=== PATIENT | female | born 1995 | race Caucasian/White ===

== ENCOUNTER 2016-07-22 01:50 | Emergency (ER) | payer BC ==
--- NOTE | 2016-07-22 02:42 | EDM.PDOC ---
ED HPI Behavioral Health - General Chief Complaint: Behavioral/Psych Stated Complaint: Depression, superficial cutting bilat arms Time Seen by Provider: 07/22/16 02:29 Source of Information: Reports: Patient Exam Limitations: Reports: No limitations - History of Present Illness INITIAL COMMENTS - FREE TEXT/NARRATIVE: Patient brought here via ems with reports of her being suicidal. she has attempted previously to commit suicide. She appears impulsive during history taking. Does see psychiatrist and a psychologist. Next appt. with both of them is on . She has had 4 friends/family/acquaintances over the last 2 weeks and is not dealing well. States she was recently started on Cymbalta which she has NOT started taking yet. Mother is here with her. She has bilateral forearm lacerations that are superficial. No organized plan, thought processes not well organized. Onset of Symptoms: Reports: today Symptom Onset Date: 07/22/16 Severity: moderate Context, Behavioral Health: Reports: other Associated Symptoms: Reports: depression - SAD Persons Scale (SPS) SPS Sex: Female SPS Age: Between 18-65 Years of Age SPS Depression: Yes SPS Previous Suicide Attempts: Yes SPS Alcohol Abuse/Drug Abuse: No SPS Rational Thinking Loss: No SPS Social Support Deficit: No SPS Organized Suicide Plan: No SPS No Spouse/Significant Other: Yes SPS Sickness: No SPS Sad Person Scale Score: 3 - Related Data Allergies Allergy/AdvReac Type Severity Reaction Status Date / Time No Known Drug Allergies Allergy Other Verified 11/25/15 00:52 Home Medications: Home Meds OXcarbazepine [Oxcarbazepine] 2,400 mg PO BEDTIME 05/21/14 [History] Gabapentin [Neurontin] 600 mg PO BEDTIME 11/25/15 [History] DULoxetine [Cymbalta] 20 mg PO DAILY 07/22/16 [History] Prazosin [Minpress] 2 mg PO DAILY 07/22/16 [History] Ziprasidone HCl 80 mg PO BEDTIME 07/22/16 [History] hydrALAZINE HCl [Hydralazine HCl] 200 mg PO BEDTIME 07/22/16 [History] Past Medical History Musculoskeletal History: Reports: Arthritis Other Musculoskeletal History: B. knees Neurological History: Reports: Seizure Psychiatric History: Reports: Anxiety, Bipolar, Depression - Infectious Disease History Infectious Disease History: Reports: Chicken pox Social & Family History - Family History Family Medical History: Noncontributory - Tobacco Use Smoking Status *Q: Current Every Day Smoker Years of Tobacco use: 4 Packs/Tins Daily: 1 - Alcohol Use Days Per Week of Alcohol Use: 5 Number of Drinks Per Day: 3 Total Drinks Per Week: 15 - Recreational Drug Use Recreational Drug Use: Yes Drug Use in Last 12 Months: Yes - Living Situation & Occupation Living situation: Reports: single ED ROS GENERAL - Review of Systems Review Of Systems: See Below Constitutional: Reports: no symptoms HEENT: Reports: No symptoms Respiratory: Reports: no symptoms Cardiovascular: Reports: No symptoms Endocrine: Reports: no symptoms GI/Abdominal: Reports: No symptoms : Reports: no symptoms Musculoskeletal: Reports: no symptoms Skin: Reports: wound (bilateral forearm lacerations, superficial) Neurological: Reports: no symptoms Psychiatric: Reports: Depression, Suicidal ideation Hematologic/Lymphatic: Reports: no symptoms Immunologic: Reports: no symptoms ED EXAM, BEHAVIORAL HEALTH - Physical Exam Exam: See Below Exam Limited By: No limitations General Appearance: alert, WD/WN, mild distress Eye Exam: bilateral eye: EOMI, PERRL Head: atraumatic, normocephalic Neck: normal inspection Respiratory/Chest: no respiratory distress, lungs clear Cardiovascular: normal peripheral pulses, regular rate, rhythm GI/Abdominal: normal bowel sounds, soft, non tender Neurological: alert, CN II-XII intact, normal cognition, oriented x 3 Psychiatric: alert, depressed mood, flight of ideas. No: suicidal plan, suicidal thoughts (states no plan or thoughts of suicide at this time) Skin Exam: Warm, Dry, Piercing(s) (lip), Signs of self injury (bilateral superficial forearm lacs) Departure - Departure Time of Disposition: 02:58 Disposition: Home, Self-Care 01 Condition: fair Clinical Impression: Depressive disorder, Self-harm, Suicidal thoughts Instructions: Suicidal Feelings: How to Help Yourself Forms: ED Department Discharge Additional Instructions: If you are to go home you need someone with you tonight to be sure that you will be safe. I recommend attempting to reschedule your doctors for an earlier appointment You need to start your Cymbalta, some of the stated side effects may be more suicidal feelings. If you experience this, you need to contact your medical provider Please call the ER if you have any questions, concerns, or start having suicidal thoughts and ideas. - Problem List & Annotations (1) Depressive disorder SNOMED Code(s): 48133059 Code(s): F32.9 - MAJOR DEPRESSIVE DISORDER, SINGLE EPISODE, UNSPECIFIED Status: Acute Priority: Low Current Visit: Yes (2) Self-harm SNOMED Code(s): 053707098 Code(s): [id number] - Status: Acute Priority: Medium Current Visit: Yes - Problem List Review Problem List Initiated/Reviewed/Updated: Yes - Assessment/Plan Assessment:: depression self harm Plan: If you are to go home you need someone with you tonight to be sure that you will be safe. I recommend attempting to reschedule your doctors for an earlier appointment You need to start your Cymbalta, some of the stated side effects may be more suicidal feelings. If you experience this, you need to contact your medical provider Please call the ER if you have any questions, concerns, or start having suicidal thoughts and ideas.
== END 2016-07-22 03:07 | disposition home or self-care (01) ==
LOC: VM.ED 01:50
CPT/HCPCS: 99284

== ENCOUNTER 2016-09-03 10:04 | Observation (INO) | payer BC ==
[2016-09-03] MEDS ORDERED: Sodium Chloride 0.9% 1,000 ML IV ONE (10:31)
[2016-09-03] MEDS ORDERED: Sodium Chloride 0.9% 10 ML Syringe FLUSH PRN (10:31)
--- NOTE | 2016-09-03 11:23 | EDM.PDOC ---
ED HPI GENERAL MEDICAL PROBLEM - General Chief Complaint: General Stated Complaint: "my equilibrium is off" Time Seen by Provider: 09/03/16 10:04 Source of Information: Reports: Patient, Family History Limitations: Reports: No limitations - History of Present Illness INITIAL COMMENTS - FREE TEXT/NARRATIVE: Patient is brought in via her mother with complaint of her "equilibrium being off". She did need to be brought in via wheelchair and an assist of 2 with a gait belt to transfer her to the stretcher. She admits to drinking some alcohol last night, 2 beers. Denies any illegal drugs. She stated that she took her evening medications this morning, but then spit them out. I previously saw her in early July for suicidal ideation and cutting behaviors. She has recently added cymbalta to her regimen. Mother is here as well helping with history. Family did go to her apartment and did tell me that all medications were accounted for. She does have an extensive history of mental instability with suicidal ideations, cutting, and suicidal attempts. She states that at 8 am she awoke and took care of her dog. It was not until about 930 that [address] felt this [address]. She denies that she took anything illicit within the last 24 hours. She does have some nausea, vomiting and double vision. She is awake and is able to give accurate answers to orientation questions. Onset: today Onset Date: 09/03/16 Onset Time: 09:30 Severity: severe Improves with: Reports: Rest Worsens with: Reports: Movement Associated Symptoms: Reports: nausea/vomiting, other (double vision) - Related Data Allergies Allergy/AdvReac Type Severity Reaction Status Date / Time No Known Drug Allergies Allergy Other Verified 09/03/16 10:27 Home Meds: Home Meds OXcarbazepine [Oxcarbazepine] 2,400 mg PO BEDTIME 05/21/14 [History] Gabapentin [Neurontin] 600 mg PO BEDTIME 11/25/15 [History] DULoxetine [Cymbalta] 20 mg PO DAILY 07/22/16 [History] Prazosin [Minpress] 2 mg PO DAILY 07/22/16 [History] Ziprasidone HCl 160 mg PO BEDTIME 07/22/16 [History] hydrALAZINE HCl [Hydralazine HCl] 250 mg PO BEDTIME 07/22/16 [History] Past Medical History Musculoskeletal History: Reports: Arthritis Other Musculoskeletal History: B. knees Neurological History: Reports: Seizure Psychiatric History: Reports: Anxiety, Bipolar, Depression - Infectious Disease History Infectious Disease History: Reports: Chicken pox Social & Family History - Family History Family Medical History: Noncontributory - Tobacco Use Smoking Status *Q: Current Every Day Smoker Years of Tobacco use: 4 Packs/Tins Daily: 1 - Alcohol Use Days Per Week of Alcohol Use: 5 Number of Drinks Per Day: 3 Total Drinks Per Week: 15 - Recreational Drug Use Recreational Drug Use: Yes Drug Use in Last 12 Months: Yes - Living Situation & Occupation Living situation: Reports: single ED ROS GENERAL - Review of Systems Review Of Systems: See Below Constitutional: Reports: weakness, other HEENT: Reports: Other (double vision) Respiratory: Reports: No Symptoms Cardiovascular: Reports: No symptoms Endocrine: Reports: no symptoms GI/Abdominal: Reports: Nausea : Reports: no symptoms Musculoskeletal: Reports: no symptoms Skin: Reports: no symptoms Neurological: Reports: Weakness Psychiatric: Reports: Anxiety, Depression Hematologic/Lymphatic: Reports: no symptoms Immunologic: Reports: no symptoms ED EXAM, GENERAL - Physical Exam Exam: See Below Exam Limited By: Altered mental status General Appearance: alert, WD/WN, no apparent distress Eye Exam: bilateral eye: EOMI, PERRL Ears: normal TMs Nose: normal inspection Throat/Mouth: Normal inspection, Normal oropharynx Head: atraumatic, normocephalic Neck: normal inspection, supple, non-tender, full range of motion Respiratory/Chest: no respiratory distress, lungs clear, normal breath sounds Cardiovascular: normal peripheral pulses, regular rate, rhythm GI/Abdominal: normal bowel sounds, soft, non tender, no organomegaly Back Exam: normal inspection Extremities: normal inspection, normal range of motion, non-tender, no pedal edema, normal capillary refill, other (weakness, inability to stand or transfer) Neurological: alert, oriented, CN II-XII intact, slow to respond, abnormal gait , sensory/motor deficit Psychiatric: normal affect, normal mood Skin Exam: Warm, Dry, Intact Lymphatic: no adenopathy Course - Vital Signs Last Recorded V/S: Last Vital Signs Temp 37.1 C 09/03/16 10:04 Pulse 109 H 09/03/16 10:04 Resp 16 09/03/16 10:04 BP 128/76 09/03/16 10:04 Pulse Ox 95 09/03/16 10:04 - Orders/Labs/Meds Orders: Active Orders 24 hr Category Date Time Status EKG 12 Lead [EKG Documentation Completion] [RC] ROUTINE Care 09/03/16 10:27 Active Chest 1V Frontal [CR] Stat Exams 09/03/16 10:27 Taken Head wo Cont [CT] Stat Exams 09/03/16 10:29 Taken GABAPENTIN [REF] Stat Lab 09/03/16 10:39 Received OXCARBAZEPINE METABOLITE [REF] Stat Lab 09/03/16 10:39 Received TRICYCLIC ANTIDEPRESSANTS CINDY Routine Lab 09/03/16 11:44 Received Sodium Chloride 0.9% [Saline Flush] Med 09/03/16 10:31 Active 10 ml FLUSH ASDIRECTED PRN Saline Lock Insert [OM.PC] Routine Oth 09/03/16 10:31 Ordered Medication Orders Sodium Chloride (Saline Flush) 10 ml FLUSH ASDIRECTED PRN PRN Reason: Keep Vein Open Labs: Laboratory Tests 09/03/16 09/03/16 09/03/16 Range/Units 10:39 10:39 11:44 WBC 8.0 (4.0-10.0) x10^3/uL RBC 4.82 (4.00-5.50) x10^6/uL Hgb 14.1 (12.0-16.0) g/dL Hct 42.0 (33.0-47.0) % MCV 87.1 (78.0-93.0) fL MCH 29.3 (26.0-32.0) pg MCHC 33.6 (32.0-36.0) g/dL RDW Coeff of Alessandra 13.9 (10.0-15.0) % Plt Count 356 (130-400) x10^3/uL Neut % (Auto) 60.2 (50.0-80.0) % Lymph % (Auto) 28.6 (25.0-50.0) % Isabella % (Auto) 7.9 (2.0-11.0) % Eos % (Auto) 2.9 (0.0-4.0) % Baso % (Auto) 0.4 (0.2-1.2) % Sodium 143 (136-145) mmol/L Potassium 4.3 (3.5-5.1) mmol/L Chloride 106 (98-107) mmol/L Carbon Dioxide 28 (21-32) mmol/L BUN 9 (7-18) mg/dL Creatinine 0.9 (0.55-1.02) mg/dL Est Cr Clr Drug Dosing TNP Estimated GFR (MDRD) > 60 Glucose 120 H (74-106) mg/dL Calcium 8.5 (8.5-10.1) mg/dL Creatine Kinase 50 (26-192) U/L Creatine Kinase Index TNP CK-MB (CK-2) TNP C-Reactive Protein 0.5 (<=0.9) mg/dL Urine Color (YELLOW) Urine Appearance (CLEAR) Urine pH (5.0-8.0) Ur Specific Stafford Urine Protein (NEGATIVE) mg/dL Urine Glucose (UA) (NEGATIVE) mg/dL Urine Ketones (NEGATIVE) mg/dL Urine Occult Blood (NEGATIVE) Urine Nitrite (NEGATIVE) Urine Bilirubin (NEGATIVE) Urine Urobilinogen (0.2) EU/dL Ur Leukocyte Esterase (NEGATIVE) Urine RBC (NOT SEEN) /HPF Urine WBC (NOT SEEN) /HPF Ur Squamous Epith Cells (NEGATIVE) /HPF Urine Bacteria (NEGATIVE) /HPF Urine Mucus (NEGATIVE) /LPF Urine HCG, Qual (NEGATIVE) Urine Opiates Screen Cancelled Ur Buprenorphine Scrn Cancelled Ur Oxycodone Screen Cancelled Urine Methadone Screen Cancelled Acetaminophen 0 L (10-30) ug/ml Ur Barbiturates Screen (NEGATIVE) Ur Barbituates Screen Cancelled Ur Tricyclics Screen Cancelled Ur Amphetamine Screen (NEGATIVE) Ur Amphetamines Screen Cancelled U Methamphetamines Scrn Cancelled Urine MDMA Screen Cancelled U Benzodiazepines Scrn Cancelled Urine Cocaine Screen Cancelled U Cocaine Metab Screen (NEGATIVE) U Marijuana (THC) Screen Cancelled Ethyl Alcohol < 3 (0-3) mg/dL 09/03/16 09/03/16 09/03/16 Range/Units 11:44 11:44 11:44 WBC (4.0-10.0) x10^3/uL RBC (4.00-5.50) x10^6/uL Hgb (12.0-16.0) g/dL Hct (33.0-47.0) % MCV (78.0-93.0) fL MCH (26.0-32.0) pg MCHC (32.0-36.0) g/dL RDW Coeff of Alessandra (10.0-15.0) % Plt Count (130-400) x10^3/uL Neut % (Auto) (50.0-80.0) % Lymph % (Auto) (25.0-50.0) % Isabella % (Auto) (2.0-11.0) % Eos % (Auto) (0.0-4.0) % Baso % (Auto) (0.2-1.2) % Sodium (136-145) mmol/L Potassium (3.5-5.1) mmol/L Chloride (98-107) mmol/L Carbon Dioxide (21-32) mmol/L BUN (7-18) mg/dL Creatinine (0.55-1.02) mg/dL Est Cr Clr Drug Dosing Estimated GFR (MDRD) Glucose (74-106) mg/dL Calcium (8.5-10.1) mg/dL Creatine Kinase (26-192) U/L Creatine Kinase Index CK-MB (CK-2) C-Reactive Protein (<=0.9) mg/dL Urine Color Yellow (YELLOW) Urine Appearance Slightly cloudy H (CLEAR) Urine pH 7.0 (5.0-8.0) Ur Specific Stafford 1.025 Urine Protein 30 H (NEGATIVE) mg/dL Urine Glucose (UA) Negative (NEGATIVE) mg/dL Urine Ketones Negative (NEGATIVE) mg/dL Urine Occult Blood Large H (NEGATIVE) Urine Nitrite Negative (NEGATIVE) Urine Bilirubin Negative (NEGATIVE) Urine Urobilinogen 1.0 (0.2) EU/dL Ur Leukocyte Esterase Negative (NEGATIVE) Urine RBC 10-20 H (NOT SEEN) /HPF Urine WBC 0-5 (NOT SEEN) /HPF Ur Squamous Epith Cells Moderate H (NEGATIVE) /HPF Urine Bacteria Moderate H (NEGATIVE) /HPF Urine Mucus Few H (NEGATIVE) /LPF Urine HCG, Qual Negative (NEGATIVE) Urine Opiates Screen Negative Ur Buprenorphine Scrn Negative Ur Oxycodone Screen Negative Urine Methadone Screen Negative Acetaminophen (10-30) ug/ml Ur Barbiturates Screen Negative (NEGATIVE) Ur Barbituates Screen Ur Tricyclics Screen Positive H Ur Amphetamine Screen Negative (NEGATIVE) Ur Amphetamines Screen U Methamphetamines Scrn Negative Urine MDMA Screen Negative U Benzodiazepines Scrn Negative Urine Cocaine Screen U Cocaine Metab Screen Negative (NEGATIVE) U Marijuana (THC) Screen Negative Ethyl Alcohol (0-3) mg/dL Meds: Medications Generic Name Dose Route Start Last Admin Trade Name Freq PRN Reason Stop Dose Admin Sodium Chloride 10 ml 09/03/16 10:31 Saline Flush FLUSH ASDIRECTED PRN Keep Vein Open Discontinued Medications Generic Name Dose Route Start Last Admin Trade Name Freq PRN Reason Stop Dose Admin Sodium Chloride 1,000 mls @ 999 mls/hr 09/03/16 10:31 09/03/16 11:44 Normal Saline IV 09/03/16 11:31 999 mls/hr .BOLUS ONE Administration - Radiology Interpretation Free Text/Narrative:: Chest x-ray and Head CT ordered: both negative for acute pathology - Re-Assessments/Exams Free Text/Narrative Re-Assessment/Exam: 09/03/16 13:21 Consultations with both Go and Neurology from [facility]. I am going to admit the patient for observation. Most of her diagnostic evaluations have presented as negative findings. Her urine is positive for tricyclic antidepressants, though she does not have these ordered, and denies taking them. Her double vision did resolve when testing one eye at a time. Dr. Bolanos from [facility] felt that this was likely a psychogenic problem if the diplopia resolved when testing one eye at a time; which it did. Relayed concerns to the patient and her father regarding the positive tricyclic urine test when she is not supposed to be taking them. She and her family deny that she has taken. Departure - Departure Time of Disposition: 13:28 Disposition: Refer to Observation Condition: good Clinical Impression: Tricyclic overdose, Near syncope Forms: ED Department Discharge ED Communication - Discussed Case With (1) Discussed Case With (1): Other (Go was called to discuss patient case. I talked with Dr. Bennett. He recommended a urine test, as well as consultation with neurology. I did also contact Dr. Bolanos, Neurologist at [facility] in [place] regarding her case. recommended checking for diplopia in 1 eye at a time. If still present it was likely monocular diplopia, if it stopped , then likely psychogenic in nature. Exam showed to not extend to one eye. Double vision stopped with the one eye test bilaterally, then resumed with both eyes opened.) - My Orders Last 24 Hours: My Active Orders 09/03/16 10:27 EKG 12 Lead [EKG Documentation Completion] [RC] ROUTINE Chest 1V Frontal [CR] Stat 09/03/16 10:29 Head wo Cont [CT] Stat 09/03/16 10:31 Sodium Chloride 0.9% [Saline Flush] 10 ml FLUSH ASDIRECTED PRN Saline Lock Insert [OM.PC] Routine 09/03/16 10:39 GABAPENTIN [REF] Stat OXCARBAZEPINE METABOLITE [REF] Stat 09/03/16 11:44 TRICYCLIC ANTIDEPRESSANTS CINDY Routine - Assessment/Plan Last 24 Hours: My Active Orders 09/03/16 10:27 EKG 12 Lead [EKG Documentation Completion] [RC] ROUTINE Chest 1V Frontal [CR] Stat 09/03/16 10:29 Head wo Cont [CT] Stat 09/03/16 10:31 Sodium Chloride 0.9% [Saline Flush] 10 ml FLUSH ASDIRECTED PRN Saline Lock Insert [OM.PC] Routine 09/03/16 10:39 GABAPENTIN [REF] Stat OXCARBAZEPINE METABOLITE [REF] Stat 09/03/16 11:44 TRICYCLIC ANTIDEPRESSANTS CINDY Routine
[2016-09-03 11:32] LABS: CHLORIDE,CL 106 mmol/L (98-107); SODIUM,NA 143 mmol/L (136-145)
[2016-09-03 11:47] LABS: ACETAMINOPHEN 0 ug/ml (10-30)
[2016-09-03] MEDS ORDERED: Prochlorperazine 10 MG/2 ML SDV IV ONE (13:04)
[2016-09-03] MEDS: Sodium Chloride 0.9% 1,000 ML IV SCH ×2 (13:17→19:05)
[2016-09-03] MEDS ORDERED: Acetaminophen 325 MG Tab PO PRN (15:27)
[2016-09-03] MEDS ORDERED: Enoxaparin 40 MG/0.4 ML Syringe SUBCUT ONE (15:32)
[2016-09-03] MEDS ORDERED: Prochlorperazine 5 MG Tab PO PRN (15:32)
[2016-09-03] MEDS ORDERED: hydrALAZINE 25 MG Tab PO SCH (20:00)
[2016-09-03] MEDS ORDERED: PRAZOSIN 1 MG PO SCH (20:00)
[2016-09-03] MEDS ORDERED: OXcarbazepine 300 MG Tab PO SCH (20:00)
[2016-09-03] MEDS ORDERED: ZIPRASIDONE PO SCH (20:00)
[2016-09-03] MEDS ORDERED: Gabapentin 300 MG Cap PO SCH (20:00)
[2016-09-03] MEDS ORDERED: ClonazePAM 0.5 MG Tab PO ONE ×2 (22:16→22:45)
[2016-09-03] MEDS ORDERED: ClonazePAM 0.5 MG Tab PO PRN (22:31)
[2016-09-03 23:20] VITALS: BP 119/39
--- NOTE | 2016-09-03 23:27 | PCM.DCSUM1 ---
Discharge Summary - Hospital Course Free Text/Narrative:: Patient is requesting to be discharged. Significant other in the room and will stay with the patient overnight. States that being here is causing anxiety. Brief History: Patient presented to the emergency department with complaints of double vision, nausea, "equilibrium off". Needed assistance of 2 people with gait belt to get from wheelchair to stretcher. No fever, no other complaints. History of suicidal ideation, suicide attempt, cutting and other self harm behavior. - Discharge Data Discharge Date: 09/03/16 Discharge Disposition: Home, Self-Care 01 Condition: Good - Patient Instructions Diet: Usual Diet as Tolerated Activity: As Tolerated Showering/Bathing: May Shower Notify Provider of: Fever, Nausea and/or Vomiting Other/Special Instructions: Follow up with your psychiatrist to have medications reviewed for possible polypharmacy concerns. - Discharge Plan Home Medications: Home Meds OXcarbazepine [Oxcarbazepine] 2,400 mg PO BEDTIME 05/21/14 [History] Gabapentin [Neurontin] 600 mg PO BEDTIME 11/25/15 [History] DULoxetine [Cymbalta] 20 mg PO DAILY 07/22/16 [History] Prazosin [Minpress] 1 mg PO DAILY 07/22/16 [History] Ziprasidone HCl 160 mg PO BEDTIME 07/22/16 [History] hydrALAZINE HCl [Hydralazine HCl] 250 mg PO BEDTIME 07/22/16 [History] Forms: ED Department Discharge Referrals: Linn Coy, DAYTIME CAREGIVER [Primary Care Provider] - - Discharge Summary/Plan Comment DC Time >30 min.: Yes - General Info Date of Service: 09/03/16 Functional Status: Reports: pain controlled, tolerating diet, ambulating, other (increased anxiety) - Review of Systems General: Reports: No Symptoms HEENT: Reports: no symptoms Pulmonary: Reports: no symptoms Cardiovascular: Reports: No Symptoms Gastrointestinal: Reports: No symptoms Genitourinary: Reports: no symptoms Musculoskeletal: Reports: no symptoms Skin: Reports: no symptoms Neurological: Reports: No Symptoms Psychiatric: Reports: anxiety, agitation. Denies: suicidal ideation - Patient Data Vitals - Most Recent: Last Vital Signs Temp 36.6 C 09/03/16 22:00 Pulse 124 H 09/03/16 22:00 Resp 28 H 09/03/16 22:00 BP 119/39 L 09/03/16 22:00 Pulse Ox 98 09/03/16 22:00 Weight - Most Recent: 95.889 kg I&O - Last 24 hours: Intake & Output 09/03/16 09/03/16 09/04/16 14:59 22:59 06:59 Intake Total 848 748 Output Total 500 Balance 348 748 Med Orders - Current: Current Medications Acetaminophen (Tylenol) 650 mg PO Q4H PRN PRN Reason: analgesia/fever Clonazepam (Klonopin) 0.5 mg PO ONETIME PRN PRN Reason: agitation Stop: 09/04/16 02:00 Duloxetine HCl (Cymbalta) 20 mg PO DAILY HINA Gabapentin (Neurontin) 600 mg PO BEDTIME HINA Last Admin: 09/03/16 20:26 Dose: 600 mg Hydralazine HCl (Apresoline) 250 mg PO BEDTIME HINA Last Admin: 09/03/16 20:25 Dose: 250 mg Sodium Chloride (Normal Saline) 1,000 mls @ 150 mls/hr IV ASDIRECTED HINA Last Admin: 09/03/16 19:05 Dose: 150 mls/hr Nf (Ziprasidone (80mgx2)Ptom) 160 mg PO BEDTIME HINA Last Admin: 09/03/16 20:28 Dose: 160 mg Nf(Prazosin 1 Mg) (Ptom) 1 mg PO BEDTIME HINA Last Admin: 09/03/16 20:26 Dose: 1 mg Oxcarbazepine (Trileptal) 2,400 mg PO BEDTIME HINA Last Admin: 09/03/16 20:27 Dose: 2,400 mg Prochlorperazine Maleate (Compazine) 2.5 mg PO Q8H PRN PRN Reason: Nausea Sodium Chloride (Saline Flush) 10 ml FLUSH ASDIRECTED PRN PRN Reason: Keep Vein Open Discontinued Medications Clonazepam (Klonopin) 0.5 mg PO ONETIME ONE Stop: 09/03/16 22:46 Last Admin: 09/03/16 22:43 Dose: Not Given Enoxaparin Sodium (Lovenox) 40 mg SUBCUT ONETIME ONE Stop: 09/03/16 15:33 Last Admin: 09/03/16 16:01 Dose: 40 mg Sodium Chloride (Normal Saline) 1,000 mls @ 999 mls/hr IV .BOLUS ONE Stop: 09/03/16 11:31 Last Admin: 09/03/16 11:44 Dose: 999 mls/hr Non-Formulary Medication (Prazosin [Minpress]) 2 mg PO DAILY HINA Prochlorperazine Edisylate (Compazine) 5 mg IV ONETIME ONE Stop: 09/03/16 13:05 Last Admin: 09/03/16 13:18 Dose: 5 mg - Exam General: Reports: alert, oriented HEENT: Reports: Pupils equal, Pupils reactive, EOMI, Mucous membr. moist/pink Neck: Reports: supple Lungs: Reports: Clear to auscultation Cardiovascular: Reports: Regular Rate, Regular Rhythm Abdomen: Reports: bowel sounds present Extremities: Reports: no edema Skin: Reports: warm, dry, intact Neurological: Reports: no new focal deficit Psy/Mental Status: Reports: alert, normal affect, anxious, agitated *Q Meaningful Use (DIS) - VTE *Q VTE Criteria *Q: - Stroke *Q Stroke Criteria *Q: - AMI *Q AMI Criteria *Q:
[2016-09-04] MEDS ORDERED: PRAZOSIN 2 MG PO SCH (08:00)
[2016-09-04] MEDS ORDERED: DULoxetine 20 MG Cap PO SCH (08:00)
== END 2016-09-03 23:46 | disposition home or self-care (01) ==
LOC: VM.ED 10:04 → VM.MS 13:04
PROVIDERS: ADMIT Nurse Practitioner Family; ATTEND Nurse Practitioner Family
DX: T43.011A Poisoning by tricyclic antidepressants, accidental (unintentional), initial encounter (principal); R55 Syncope and collapse; F41.9 Anxiety disorder, unspecified; F32.9 Major depressive disorder, single episode, unspecified; F17.210 Nicotine dependence, cigarettes, uncomplicated; Z79.899 Other long term (current) drug therapy
CPT/HCPCS: 70450; 71010; 80048; 80171; 80183; 80299; 80305; 81001; 81025; 82550; 85025; 86140; 93005; 96361; 96372; 96374; 99285; A9270; G0378; G0480; J0780; J1650; J7030

== ENCOUNTER 2016-11-09 22:34 | Emergency (ER) | payer OTHER, BC ==
[2016-11-09] MEDS ORDERED: Take Home: Acetaminophen/oxyCODONE 325-5 MG, 5 Tab Pack PO ONE (23:35)
--- NOTE | 2016-11-09 23:39 | EDM.PDOC ---
ED HPI GENERAL MEDICAL PROBLEM - General Chief Complaint: Lower Extremity Injury/Pain Stated Complaint: FOOT/ANKLE INJURY Time Seen by Provider: 11/09/16 22:35 Source of Information: Reports: Patient History Limitations: Reports: No Limitations - History of Present Illness INITIAL COMMENTS - FREE TEXT/NARRATIVE: Patient was jumping on a trampoline at work with the children she was watching. She did roll her ankle on the tramp. She doesn't have any other complaints. She did not hit her head or lose consciousness. Comes in via wheelchair. Foot was wrapped with ice. Onset: Today, Sudden Onset Date: 11/10/16 Onset Time: 19:00 Location: Reports: Lower Extremity, Left Quality: Reports: Ache Improves with: Reports: Cold Therapy Worsens with: Reports: Movement Associated Symptoms: Reports: No Other Symptoms - Related Data Allergies Allergy/AdvReac Type Severity Reaction Status Date / Time No Known Drug Allergies Allergy Other Verified 09/03/16 10:27 Home Meds: Home Meds OXcarbazepine [Oxcarbazepine] 2,400 mg PO BEDTIME 05/21/14 [History] Gabapentin [Neurontin] 600 mg PO BEDTIME 11/25/15 [History] DULoxetine [Cymbalta] 20 mg PO DAILY 07/22/16 [History] Prazosin [Minpress] 1 mg PO DAILY 07/22/16 [History] Ziprasidone HCl 160 mg PO BEDTIME 07/22/16 [History] hydrALAZINE HCl [Hydralazine HCl] 250 mg PO BEDTIME 07/22/16 [History] OXcarbazepine [Trileptal] 2,400 mg PO BEDTIME tablet 09/03/16 [Rx] Prazosin [Minpress] 1 mg PO BEDTIME 09/03/16 [Rx] Past Medical History Musculoskeletal History: Reports: Arthritis Other Musculoskeletal History: B. knees Neurological History: Reports: Seizure Psychiatric History: Reports: Anxiety, Bipolar, Depression - Infectious Disease History Infectious Disease History: Reports: Chicken Pox Social & Family History - Family History Family Medical History: Noncontributory - Tobacco Use Smoking Status *Q: Current Every Day Smoker Years of Tobacco use: 8 Packs/Tins Daily: 0.5 - Caffeine Use Caffeine Use: Reports: Coffee, Energy Drinks, Soda - Alcohol Use Days Per Week of Alcohol Use: 3 Number of Drinks Per Day: 3 Total Drinks Per Week: 9 - Recreational Drug Use Recreational Drug Use: No Drug Use in Last 12 Months: Yes - Living Situation & Occupation Living situation: Reports: Single Review of Systems - Review of Systems Review Of Systems: See Below Constitutional: Reports: No Symptoms Eyes: Reports: No Symptoms Ears: Reports: No Symptoms Nose: Reports: No Symptoms Mouth/Throat: Reports: No Symptoms Respiratory: Reports: No Symptoms Cardiovascular: Reports: No Symptoms GI/Abdominal: Reports: No Symptoms Genitourinary: Reports: No Symptoms Musculoskeletal: Reports: Leg Pain, Foot Pain Skin: Reports: No Symptoms Neurological: Reports: No Symptoms Psychiatric: Reports: No Symptoms ED EXAM, GENERAL - Physical Exam Exam: See Below Exam Limited By: No Limitations General Appearance: Alert, WD/WN, Mild Distress Head: Atraumatic, Normocephalic Extremities: Pedal Edema Neurological: Alert, Oriented, CN II-XII Intact, Normal Cognition, Normal Gait, Normal Reflexes, No Motor/Sensory Deficits Psychiatric: Normal Affect, Normal Mood Skin Exam: Warm, Dry, Intact, Normal Color, No Rash Course - Orders/Labs/Meds Orders: Active Orders 24 hr Category Date Time Status Ankle Min 3V Lt [CR] Stat Exams 11/09/16 22:42 Taken - Radiology Interpretation Free Text/Narrative:: negative x-ray for acute fracture Departure - Departure Time of Disposition: 23:31 Disposition: Home, Self-Care 01 Condition: Good Clinical Impression: Left ankle sprain - Discharge Information Instructions: Ankle Sprain, [id number] Additional Instructions: Elevate your ankle as much as possible. Having it lowered will just increase the swelling. You should also ice your ankle for 30 minutes at a time, then take the ice off for at least the same amount of time. Continue to ice, elevate and compress your ankle until the pain and swelling have resolved. If you have continued difficulties past 7-10 days, please follow up with your primary provider. Please call us with any questions or concerns. - Problem List & Annotations (1) Left ankle sprain SNOMED Code(s): 91513515 Code(s): S93.402A - SPRAIN OF UNSPECIFIED LIGAMENT OF LEFT ANKLE, INIT ENCNTR Status: Acute Priority: Low Qualifiers: Encounter type: initial encounter Involved ligament of ankle: unspecified ligament Qualified Code(s): S93.402A - Sprain of unspecified ligament of left ankle, initial encounter - Problem List Review Problem List Initiated/Reviewed/Updated: Yes - My Orders Last 24 Hours: My Active Orders 11/09/16 22:42 Ankle Min 3V Lt [CR] Stat - Assessment/Plan Last 24 Hours: My Active Orders 11/09/16 22:42 Ankle Min 3V Lt [CR] Stat Assessment:: left ankle sprain Plan: Elevate your ankle as much as possible. Having it lowered will just increase the swelling. You should also ice your ankle for 30 minutes at a time, then take the ice off for at least the same amount of time. Continue to ice, elevate and compress your ankle until the pain and swelling have resolved. If you have continued difficulties past 7-10 days, please follow up with your primary provider. Please call us with any questions or concerns.
[2016-11-10 01:14] VITALS: BP 135/82
== END 2016-11-09 23:48 | disposition home or self-care (01) ==
LOC: VM.ED 22:34 → SUPCPDRO 22:34 → VM.ED 23:48
DX: S93.402A Sprain of unspecified ligament of left ankle, initial encounter (principal); F31.9 Bipolar disorder, unspecified; F17.210 Nicotine dependence, cigarettes, uncomplicated; Z79.899 Other long term (current) drug therapy; X58.XXXA Exposure to other specified factors, initial encounter; Y93.39 Activity, other involving climbing, rappelling and jumping off; Y93.44 Activity, trampolining
CPT/HCPCS: 73610; 99283; A9270

== ENCOUNTER 2017-03-08 17:05 | Observation (INO) | payer BC ==
[2017-03-08 17:57] LABS: CHLORIDE,CL 103 mmol/L (98-107); SODIUM,NA 140 mmol/L (136-145)
--- NOTE | 2017-03-08 18:20 | EDM.PDOC ---
ED HPI GENERAL MEDICAL PROBLEM - General Chief Complaint: Drug or Alcohol Abuse Stated Complaint: EXCESS PILL INTAKE Time Seen by Provider: 03/08/17 17:05 Source of Information: Reports: Family History Limitations: Reports: Altered Mental Status, Other (Patient did come to the emergency room with drug overdose and was brought in by her parents.) - History of Present Illness INITIAL COMMENTS - FREE TEXT/NARRATIVE: Patient was at home and did breakup with her significant other today according to her mother. Her mother was at home cooking and she did get a phone call from the patient who said that she took an overdose of pills and her mom went to her house and picked her up and brought her to the emergency room. Mom did find out how many pills the patient did take, these included Caphydroxyz Ayde 50mg-she did take 14 of these, Gabapentin 600mg - she did take seven of these, CapPrazosin HCL 1mg - She did take seven of these, Capziprasidone 40mg - she did take seven of these, Capduloxetine 20mg - She did take seven of these, Capziprasidone 80 mg - She did take seven of these, Oxcarbazepin 600mg - She did take twenty eight of these. Patient was not alert or oriented when brought into the emergency room, she did react to painful stimulation as a nurses to try to start her IV. She also did interact with one of the nurses and told her that she had 2 beers to drink also today. 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 (see below) (Mother did try to outpatient vomit, she did vomit twice before coming to the emergency room mom was unsure how much of the medication came off or if any.) - Related Data Allergies Allergy/AdvReac Type Severity Reaction Status Date / Time No Known Drug Allergies Allergy Other Verified 11/10/16 00:52 Home Meds: Home Meds OXcarbazepine [Oxcarbazepine] 2,400 mg PO BEDTIME 05/21/14 [History] Gabapentin [Neurontin] 600 mg PO BEDTIME 11/25/15 [History] DULoxetine [Cymbalta] 20 mg PO DAILY 07/22/16 [History] Prazosin [Minpress] 1 mg PO DAILY 07/22/16 [History] Ziprasidone HCl 160 mg PO BEDTIME 07/22/16 [History] hydrALAZINE HCl [Hydralazine HCl] 250 mg PO BEDTIME 07/22/16 [History] OXcarbazepine [Trileptal] 2,400 mg PO BEDTIME tablet 09/03/16 [Rx] Prazosin [Minpress] 1 mg PO BEDTIME 09/03/16 [Rx] Past Medical History Musculoskeletal History: Reports: Arthritis Other Musculoskeletal History: B. knees Neurological History: Reports: Seizure Psychiatric History: Reports: Anxiety, Bipolar, Depression - Infectious Disease History Infectious Disease History: Reports: Chicken Pox Social & Family History - Family History Family Medical History: Noncontributory - Tobacco Use Smoking Status *Q: Unknown Ever Smoked Years of Tobacco use: 8 Packs/Tins Daily: 0.5 - Caffeine Use Caffeine Use: Reports: Coffee, Energy Drinks, Soda - Alcohol Use Days Per Week of Alcohol Use: 3 Number of Drinks Per Day: 3 Total Drinks Per Week: 9 - Recreational Drug Use Recreational Drug Use: No Drug Use in Last 12 Months: Yes - Living Situation & Occupation Living situation: Reports: Single ED ROS GENERAL - Review of Systems Review Of Systems: Unable To Obtain ED EXAM, GENERAL - Physical Exam Exam: See Below Exam Limited By: No Limitations General Appearance: Lethargic, Moderate Distress Course - Vital Signs Last Recorded V/S: Last Vital Signs Temp 37.4 C 03/08/17 17:05 Pulse 89 03/08/17 19:07 Resp 15 03/08/17 19:07 BP 93/47 L 03/08/17 19:07 Pulse Ox 93 L 03/08/17 19:07 - Orders/Labs/Meds Orders: Active Orders 24 hr Category Date Time Status Patient Status [ADT] Routine ADT 03/08/17 19:07 Active Chest 1V Frontal [CR] Stat Exams 03/08/17 17:49 Taken BENZODIAZEPINE CONF (LCMSMS) Routine Lab 03/08/17 17:25 Received SALICYLATE [REF] Routine Lab 03/08/17 17:25 Received Labs: Laboratory Tests 03/08/17 03/08/17 03/08/17 Range/Units 17:25 17:25 17:25 WBC 12.3 H (4.0-10.0) x10^3/uL RBC 4.99 (4.00-5.50) x10^6/uL Hgb 14.9 (12.0-16.0) g/dL Hct 43.1 (33.0-47.0) % MCV 86.4 (78.0-93.0) fL MCH 29.9 (26.0-32.0) pg MCHC 34.6 (32.0-36.0) g/dL RDW Coeff of Alessandra 13.4 (10.0-15.0) % Plt Count 343 (130-400) x10^3/uL Neut % (Auto) 73.0 (50.0-80.0) % Lymph % (Auto) 18.5 L (25.0-50.0) % [place] % (Auto) 7.5 (2.0-11.0) % Eos % (Auto) 0.6 (0.0-4.0) % Baso % (Auto) 0.4 (0.2-1.2) % Sodium 140 (136-145) mmol/L Potassium 3.4 L (3.5-5.1) mmol/L Chloride 103 (98-107) mmol/L Carbon Dioxide 24 (21-32) mmol/L BUN 8 (7-18) mg/dL Creatinine 0.8 (0.55-1.02) mg/dL Est Cr Clr Drug Dosing TNP Estimated GFR (MDRD) > 60 Glucose 88 (74-106) mg/dL Calcium 9.1 (8.5-10.1) mg/dL Corrected Calcium 8.86 (8.5-10.1) mg/dL Total Bilirubin 0.3 (0.2-1.0) mg/dL AST 24 (15-37) U/L ALT 29 (14-59) U/L Alkaline Phosphatase 97 (46-116) U/L Total Protein 7.9 (6.4-8.2) g/dL Albumin 4.3 (3.4-5.0) g/dL Globulin 3.6 Albumin/Globulin Ratio 1.19 Urine Opiates Screen Negative (NEGATIVE) Ur Buprenorphine Scrn Negative (NEGATIVE) Ur Oxycodone Screen Negative (NEGATIVE) Urine Methadone Screen Negative (NEGATIVE) Acetaminophen 0 L (10-30) ug/ml Ur Barbiturates Screen Negative (NEGATIVE) Ur Tricyclics Screen Negative (NEGATIVE) Ur Amphetamine Screen Negative (NEGATIVE) U Methamphetamines Scrn Negative (NEGATIVE) Urine MDMA Screen Negative (NEGATIVE) U Benzodiazepines Scrn Positive H (NEGATIVE) U Cocaine Metab Screen Negative (NEGATIVE) U Marijuana (THC) Screen Negative (NEGATIVE) Departure - Departure Time of Disposition: 19:21 Disposition: Admitted As Inpatient 66 Condition: Critical Clinical Impression: Drug abuse, Self-harm - Discharge Information - Problem List & Annotations (1) Overdose SNOMED Code(s): 28104807 Code(s): T50.901A - POISONING BY UNSP DRUG/MEDS/BIOL SUBST, ACCIDENTAL, INIT Status: Acute Current Visit: Yes Qualifiers: Encounter type: initial encounter - My Orders Last 24 Hours: My Active Orders 03/08/17 17:25 BENZODIAZEPINE CONF (LCMSMS) Routine SALICYLATE [REF] Routine 03/08/17 17:49 Chest 1V Frontal [CR] Stat - Assessment/Plan Last 24 Hours: My Active Orders 03/08/17 17:25 BENZODIAZEPINE CONF (LCMSMS) Routine SALICYLATE [REF] Routine 03/08/17 17:49 Chest 1V Frontal [CR] Stat Assessment:: polydrug overdose Plan: polydrug overdose Admit observation Continue IV fluids Neuro checks every hour Suicide and elopement precautions Once medically cleared, will transfer pt. to [facility]
[2017-03-08 18:31] LABS: ACETAMINOPHEN 0 ug/ml (10-30)
[2017-03-09] MEDS ORDERED: Nicotine 21 MG/24 Hr Patch TRDERM ONE (07:18)
[2017-03-09 07:41] LABS: CHLORIDE,CL 107 mmol/L (98-107); SODIUM,NA 140 mmol/L (136-145)
--- NOTE | 2017-03-09 07:54 | PCM.DCSUM1 ---
Discharge Summary - Hospital Course Free Text/Narrative:: Pt. was admitted to our facility last night following a polydrug overdose. Please see H&P by Chalino Calvert PA-C. Pt. with initially unresponsive but became alert and responsive throughout the night. Pt. was somewhat belligerent and did pull out one of her IVs. She has been resistive to care and has been attempting to leave the floor to smoke. Pt. Continues to be uncooperative and will not discuss why she took the overdose. She did speak with Beckie, the screener at [facility], who felt that the pt. was being untruthful with her; she stated that the pt. told her she was taking the medications to "relax". She sees Dr. Kris Maharaj at [facility] for psychiatry in [place]. - Discharge Data Discharge Date: 03/09/17 Discharge Disposition: DC/Tfer to Psych Hosp/Unit 65 Condition: Good - Discharge Diagnosis/Problem(s) (1) Overdose SNOMED Code(s): 73651004 ICD Code: T50.901A - POISONING BY UNSP DRUG/MEDS/BIOL SUBST, ACCIDENTAL, INIT Status: Acute Current Visit: Yes Qualifiers: Encounter type: initial encounter (2) Self-harm SNOMED Code(s): 931928274 ICD Code: [id number] - Status: Acute Priority: Medium Current Visit: Yes (3) Depressive disorder SNOMED Code(s): 07094869 ICD Code: F32.9 - MAJOR DEPRESSIVE DISORDER, SINGLE EPISODE, UNSPECIFIED Status: Acute Priority: Low Current Visit: No - Discharge Plan Home Medications: Home Meds OXcarbazepine [Oxcarbazepine] 2,400 mg PO BEDTIME 05/21/14 [History] Gabapentin [Neurontin] 600 mg PO BEDTIME 11/25/15 [History] DULoxetine [Cymbalta] 20 mg PO DAILY 07/22/16 [History] Prazosin [Minpress] 1 mg PO DAILY 07/22/16 [History] Ziprasidone HCl 160 mg PO BEDTIME 07/22/16 [History] hydrALAZINE HCl [Hydralazine HCl] 250 mg PO BEDTIME 07/22/16 [History] OXcarbazepine [Trileptal] 2,400 mg PO BEDTIME tablet 09/03/16 [Rx] Prazosin [Minpress] 1 mg PO BEDTIME 09/03/16 [Rx] Forms: ED Department Discharge Referrals: Linn Coy MEDICAL INFORMATION SPECIALIST [Primary Care Provider] - - Discharge Summary/Plan Comment Discharge Summary/Plan Comment: Pt. will be transferred via law enforcement to [facility]. Beckie ([facility] screener) made admission arrangements for this pt. She was provided with a Nicotine patch. - General Info Date of Service: 03/09/78 Admission Dx/Problem (Free Text: polydrug overdose; suicidal ideation Functional Status: Reports: Pain Controlled - Review of Systems General: Reports: No Symptoms HEENT: Reports: No Symptoms Pulmonary: Reports: No Symptoms Cardiovascular: Reports: No Symptoms Gastrointestinal: Reports: No Symptoms Genitourinary: Reports: No Symptoms Musculoskeletal: Reports: No Symptoms Skin: Reports: No Symptoms Neurological: Reports: No Symptoms Psychiatric: Reports: Other (Please see HPI) - Patient Data Vitals - Most Recent: Last Vital Signs Temp 37.2 C 03/09/17 02:00 Pulse 95 03/09/17 02:00 Resp 16 03/09/17 02:00 BP 99/67 03/09/17 02:00 Pulse Ox 95 03/09/17 02:00 Weight - Most Recent: 72.575 kg I&O - Last 24 hours: Intake & Output 03/08/17 03/09/17 03/09/17 22:59 06:59 14:59 Output Total 500 Balance -500 Lab Results - Last 24 hrs: Laboratory Results - last 24 hr 03/09/17 03/09/17 Range/Units 07:13 07:13 WBC 14.7 H (4.0-10.0) x10^3/uL RBC 4.47 (4.00-5.50) x10^6/uL Hgb 13.2 D (12.0-16.0) g/dL Hct 39.4 (33.0-47.0) % MCV 88.1 (78.0-93.0) fL MCH 29.5 (26.0-32.0) pg MCHC 33.5 (32.0-36.0) g/dL RDW Coeff of Alessandra 13.6 (10.0-15.0) % Plt Count 299 (130-400) x10^3/uL Neut % (Auto) 73.1 (50.0-80.0) % Lymph % (Auto) 17.0 L (25.0-50.0) % [place] % (Auto) 8.4 (2.0-11.0) % Eos % (Auto) 1.2 (0.0-4.0) % Baso % (Auto) 0.3 (0.2-1.2) % Sodium 140 (136-145) mmol/L Potassium 3.8 (3.5-5.1) mmol/L Chloride 107 (98-107) mmol/L Carbon Dioxide 26 (21-32) mmol/L BUN 8 (7-18) mg/dL Creatinine 0.7 (0.55-1.02) mg/dL Est Cr Clr Drug Dosing 123.63 mL/min Estimated GFR (MDRD) > 60 Glucose 93 (74-106) mg/dL Calcium 8.8 (8.5-10.1) mg/dL Corrected Calcium 9.20 (8.5-10.1) mg/dL Total Bilirubin 0.5 (0.2-1.0) mg/dL AST 17 (15-37) U/L ALT 23 (14-59) U/L Alkaline Phosphatase 83 (46-116) U/L Total Protein 6.6 (6.4-8.2) g/dL Albumin 3.5 (3.4-5.0) g/dL Globulin 3.1 Albumin/Globulin Ratio 1.13 Med Orders - Current: Current Medications Discontinued Medications Nicotine (Habitrol) 21 mg TRDERM ONETIME ONE Stop: 03/09/17 07:19 Last Admin: 03/09/17 07:44 Dose: 21 mg - Exam General: Reports: Alert, Oriented HEENT: Reports: Pupils Equal, Pupils Reactive, EOMI, Mucous Membr. Moist/[place] Neck: Reports: Supple Lungs: Reports: Clear to Auscultation, Normal Respiratory Effort Cardiovascular: Reports: Regular Rate, Regular Rhythm GI/Abdominal Exam: Normal Bowel Sounds, Soft, Non-Tender, No Organomegaly, No Distention Back Exam: Reports: Normal Inspection, Full Range of Motion Extremities: Normal Inspection, Normal Range of Motion, No Pedal Edema, Normal Capillary Refill Skin: Reports: Warm, Dry, Intact Neurological: Reports: No New Focal Deficit Psy/Mental Status: Reports: Alert, Anxious, Agitated, Other (resistive to care, attempting to leave floor.) *Q Meaningful Use (DIS) - VTE *Q VTE Criteria *Q: - Stroke *Q Stroke Criteria *Q: - AMI *Q AMI Criteria *Q:
[2017-03-09 08:08] VITALS: BP 109/50
== END 2017-03-09 07:50 ==
LOC: VM.ED 17:05 → VM.MS 19:07
PROVIDERS: ADMIT Physician Assistant; ATTEND Physician Assistant
DX: T50.992A Poisoning by other drugs, medicaments and biological substances, intentional self-harm, initial encounter (principal); F31.9 Bipolar disorder, unspecified; F41.9 Anxiety disorder, unspecified; Y33.XXXA Other specified events, undetermined intent, initial encounter; Z79.899 Other long term (current) drug therapy
CPT/HCPCS: 36415; 71010; 80053; 80305; 85025; 93005; 96360; 96361; 99285; A9270; G0378; G0480

== ENCOUNTER 2017-06-03 21:35 | Emergency (ER) | payer BC ==
--- NOTE | 2017-06-03 21:37 | EDM.PDOCBH ---
ED HPI GENERAL MEDICAL PROBLEM - General Chief Complaint: Behavioral/Psych Stated Complaint: I jumped out of a vehicle Time Seen by Provider: 06/03/17 21:36 Source of Information: Reports: Patient, Police, RN, RN Notes Reviewed History Limitations: Reports: No Limitations - History of Present Illness INITIAL COMMENTS - FREE TEXT/NARRATIVE: Patient is brought to the ED at [facility] by local law enforcement after she jumped out of a moving vehicle able 1/2 hour ago. Patient states her girlfiend told her "I want to break up with you." Patient states she then jumped out of the moving vehicle "to get a reaction." Patient states she was not trying to commit any self-harm or hurt herself. Patient has a long-standing history of mental health issues. She states she is under current treatment mental health treatment through the [facility]. Her Psychiatrist is Dr. Kris Maharaj. Patient states she sees her psychiatrist on a regular basis. Patient admits she did consume "a couple of drinks tonight at [employer]." Patient denies any pain. Patient denies any drug use. Patient states she smoke cigarettes on a daily. Patient denies any head injury or trauma. Patient denies any neck pain. Onset: Today - Related Data Allergies Allergy/AdvReac Type Severity Reaction Status Date / Time No Known Drug Allergies Allergy Other Verified 06/03/17 22:14 Home Meds: Home Meds OXcarbazepine [Oxcarbazepine] 1,800 mg PO BEDTIME 05/21/14 [History] Gabapentin [Neurontin] 600 mg PO BEDTIME 11/25/15 [History] DULoxetine [Cymbalta] 60 mg PO DAILY 07/22/16 [History] Prazosin [Minpress] 1 mg PO DAILY 07/22/16 [History] Ziprasidone HCl 320 mg PO BEDTIME 07/22/16 [History] ClonazePAM [KlonoPIN] 1 mg PO BID PRN 03/09/17 [History] Etonogestrel [Nexplanon] 68 mg SQ ASDIRECTED 03/09/17 [History] hydrOXYzine HCl [Atarax] 25 mg PO BEDTIME 03/09/17 [History] Past Medical History Musculoskeletal History: Reports: Arthritis Other Musculoskeletal History: B. knees Neurological History: Reports: Seizure Psychiatric History: Reports: Anxiety, Bipolar, Depression - Infectious Disease History Infectious Disease History: Reports: Chicken Pox Social & Family History - Family History Family Medical History: Noncontributory - Tobacco Use Smoking Status *Q: Current Every Day Smoker Years of Tobacco use: 10 Packs/Tins Daily: 0.5 - Caffeine Use Caffeine Use: Reports: Coffee, Energy Drinks, Soda - Alcohol Use Days Per Week of Alcohol Use: 1 Number of Drinks Per Day: 2 Total Drinks Per Week: 2 - Recreational Drug Use Recreational Drug Use: No Drug Use in Last 12 Months: No - Living Situation & Occupation Living situation: Reports: Single ED ROS GENERAL - Review of Systems Review Of Systems: See Below Constitutional: Denies: Fever, Chills, Weakness Respiratory: Denies: Shortness of Breath, Cough Cardiovascular: Denies: Chest Pain, Palpitations GI/Abdominal: Denies: Abdominal Pain, Nausea, Vomiting Musculoskeletal: Reports: No Symptoms Skin: Reports: Wound (abrasion to right elbow and abrasion to 4th digit right hand) Neurological: Reports: No Symptoms Psychiatric: Reports: Agitation, Depression. Denies: Homicidal Ideation, Suicidal Ideation ED EXAM, BEHAVIORAL HEALTH - Physical Exam Exam: See Below Exam Limited By: No Limitations General Appearance: Alert, No Apparent Distress, Obese Head: Atraumatic, Normocephalic Neck: Supple Respiratory/Chest: No Respiratory Distress, Lungs Clear, Normal Breath Sounds Cardiovascular: Normal Peripheral Pulses, Regular Rate, Rhythm GI/Abdominal: Normal Bowel Sounds, Soft, Non-Tender Back Exam: Normal Inspection, Full Range of Motion Extremities: Normal Inspection Neurological: Alert, Oriented x 3 Psychiatric: Depressed Mood, Tearful Skin Exam: Warm, Dry, Normal color, Wound/incision (Abrasion to right elbow and 4th digit right hand) COURSE, BEHAVIORAL HEALTH COMP - Course Vital Signs: Last Vital Signs Temp 37.7 C 06/03/17 21:36 Pulse 108 H 06/03/17 21:36 Resp 16 06/03/17 21:36 BP 136/73 06/03/17 21:36 Pulse Ox 97 06/03/17 21:36 Orders, Labs, Meds: Active Orders 24 hr Category Date Time Status ACETAMINOPHEN [CHEM] Stat Lab 06/03/17 22:12 Results BASIC METABOLIC PANEL,BMP [CHEM] Stat Lab 06/03/17 22:12 Results SALICYLATE [REF] Stat Lab 06/03/17 22:12 Received Laboratory Tests 06/03/17 06/03/17 06/03/17 Range/Units 21:58 22:12 22:12 WBC 11.1 H (4.0-10.0) x10^3/uL RBC 5.00 (4.00-5.50) x10^6/uL Hgb 14.9 (12.0-16.0) g/dL Hct 43.5 (33.0-47.0) % MCV 87.0 (78.0-93.0) fL MCH 29.8 (26.0-32.0) pg MCHC 34.3 (32.0-36.0) g/dL RDW Coeff of Alessandra 13.9 (10.0-15.0) % Plt Count 375 (130-400) x10^3/uL Neut % (Auto) 66.0 (50.0-80.0) % Lymph % (Auto) 24.9 L (25.0-50.0) % Upton % (Auto) 7.5 (2.0-11.0) % Eos % (Auto) 1.1 (0.0-4.0) % Baso % (Auto) 0.5 (0.2-1.2) % Sodium (136-145) mmol/L Potassium (3.5-5.1) mmol/L Chloride (98-107) mmol/L Carbon Dioxide (21-32) mmol/L BUN (7-18) mg/dL Creatinine (0.55-1.02) mg/dL Est Cr Clr Drug Dosing Estimated GFR (MDRD) Glucose (74-106) mg/dL Calcium (8.5-10.1) mg/dL Urine Opiates Screen Negative (NEGATIVE) Ur Buprenorphine Scrn Negative (NEGATIVE) Ur Oxycodone Screen Negative (NEGATIVE) Urine Methadone Screen Negative (NEGATIVE) Ur Barbiturates Screen Negative (NEGATIVE) Ur Tricyclics Screen Negative (NEGATIVE) Ur Amphetamine Screen Negative (NEGATIVE) U Methamphetamines Scrn Negative (NEGATIVE) Urine MDMA Screen Negative (NEGATIVE) U Benzodiazepines Scrn Negative (NEGATIVE) U Cocaine Metab Screen Negative (NEGATIVE) U Marijuana (THC) Screen Negative (NEGATIVE) Ethyl Alcohol 199 H (0-3) mg/dL 06/03/17 Range/Units 22:12 WBC (4.0-10.0) x10^3/uL RBC (4.00-5.50) x10^6/uL Hgb (12.0-16.0) g/dL Hct (33.0-47.0) % MCV (78.0-93.0) fL MCH (26.0-32.0) pg MCHC (32.0-36.0) g/dL RDW Coeff of Alessandra (10.0-15.0) % Plt Count (130-400) x10^3/uL Neut % (Auto) (50.0-80.0) % Lymph % (Auto) (25.0-50.0) % Upton % (Auto) (2.0-11.0) % Eos % (Auto) (0.0-4.0) % Baso % (Auto) (0.2-1.2) % Sodium 142 (136-145) mmol/L Potassium 3.6 (3.5-5.1) mmol/L Chloride 105 (98-107) mmol/L Carbon Dioxide 20 L (21-32) mmol/L BUN 8 (7-18) mg/dL Creatinine 0.8 (0.55-1.02) mg/dL Est Cr Clr Drug Dosing TNP Estimated GFR (MDRD) > 60 Glucose 90 (74-106) mg/dL Calcium 8.8 (8.5-10.1) mg/dL Urine Opiates Screen (NEGATIVE) Ur Buprenorphine Scrn (NEGATIVE) Ur Oxycodone Screen (NEGATIVE) Urine Methadone Screen (NEGATIVE) Ur Barbiturates Screen (NEGATIVE) Ur Tricyclics Screen (NEGATIVE) Ur Amphetamine Screen (NEGATIVE) U Methamphetamines Scrn (NEGATIVE) Urine MDMA Screen (NEGATIVE) U Benzodiazepines Scrn (NEGATIVE) U Cocaine Metab Screen (NEGATIVE) U Marijuana (THC) Screen (NEGATIVE) Ethyl Alcohol (0-3) mg/dL Departure - Departure Time of Disposition: 22:36 Disposition: Home, Self-Care 01 Condition: Good Clinical Impression: Depression Qualifiers: Depression Type: major depressive disorder Major depression recurrence: recurrent Active/Remission status: currently active Major depression episode severity: moderate Qualified Code(s): F33.1 - Major depressive disorder, recurrent, moderate - Discharge Information Instructions: Psychosis Referrals: Linn Coy NP [Primary Care Provider] - Forms: ED Department Discharge Additional Instructions: 1. Stay well hydrated and rest 2. Continue taking your home medications without and changes 3. Recommend making a follow up appointment with Dr. Maharaj this week or early next week 4. Also, make an appointment with your Primary for a recheck 5. Call with any questions/concerns - Problem List Review Problem List Initiated/Reviewed/Updated: Yes - My Orders Last 24 Hours: My Active Orders 06/03/17 22:12 ACETAMINOPHEN [CHEM] Stat BASIC METABOLIC PANEL,BMP [CHEM] Stat SALICYLATE [REF] Stat - Assessment/Plan Last 24 Hours: My Active Orders 06/03/17 22:12 ACETAMINOPHEN [CHEM] Stat BASIC METABOLIC PANEL,BMP [CHEM] Stat SALICYLATE [REF] Stat Plan: Labs discussed with patient. No indication that patient is an immediate threat to self at this time. I do not believe patient is currently suicidal. Patient is able to contract for safety. Patient will be discharged home. Recommend follow up with Psychiatry and continue taking her same meds without any changes. No indication for inpatient treatment at this time.
[2017-06-03 22:13] VITALS: BP 136/73
[2017-06-03 22:35] LABS: CHLORIDE,CL 105 mmol/L (98-107); SODIUM,NA 142 mmol/L (136-145)
[2017-06-03 23:03] LABS: ACETAMINOPHEN 0 ug/ml (10-30)
== END 2017-06-03 23:04 | disposition home or self-care (01) ==
LOC: VM.ED 21:35
DX: F33.1 Major depressive disorder, recurrent, moderate (principal); F17.210 Nicotine dependence, cigarettes, uncomplicated; Z79.899 Other long term (current) drug therapy
CPT/HCPCS: 36415; 80048; 80305; 85025; 99285; G0480